=== PATIENT | female | born 1995 ===

== ENCOUNTER 2017-01-22 10:09 | Emergency (ER) | payer OTHER ==
[2017-01-22 10:15] VITALS: RESP 16; O2SAT 100
--- NOTE | 2017-01-22 11:48 | C.PDOC ---
History Of Present Illness Hx obtained via personal lines account manager 21-year-old female, (, LMP: 12/16) presents to the emergency department with complaints of abdominal pain. Patient states she has been experiencing suprapubic abdominal pain that started two days ago. Pain is intermittent in nature, non-radiating and associated with a blood-tinged cough. Patient denies dysuria, fevers, vaginal bleeding, or any other associated symptoms. No other complaints at this time. Time Seen by Provider: 01/22/17 10:29 Chief Complaint (Nursing): Abdominal Pain History Per: Patient History/Exam Limitations: no limitations Onset/Duration Of Symptoms: Days Current Symptoms Are (Timing): Still Present Severity: Moderate Past Medical History Reviewed: Historical Data, Nursing Documentation, Vital Signs Vital Signs: Last Vital Signs Temp 98.4 F 01/22/17 10:14 Pulse 98 H 01/22/17 10:14 Resp 16 01/22/17 10:14 BP 113/74 01/22/17 10:14 Pulse Ox 100 01/22/17 11:51 - Medical History PMH: Asthma Family History: States: No Known Family Hx - Social History Hx Alcohol Use: No Hx Substance Use: No - Immunization History Hx Influenza Vaccination: No Review Of Systems Except As Marked, All Systems Reviewed And Found Negative. Constitutional: Negative for: Fever, Chills Cardiovascular: Negative for: Chest Pain, Palpitations Respiratory: Positive for: Hemoptysis (blood-tinged) Gastrointestinal: Positive for: Abdominal Pain. Negative for: Nausea, Vomiting Genitourinary: Negative for: Dysuria, Frequency, Vaginal Bleeding Neurological: Negative for: Headache Physical Exam - Physical Exam Appears: Non-toxic, No Acute Distress Skin: Warm, Dry, No Rash Head: Atraumatic, Normacephalic Eye(s): bilateral: Normal Inspection, PERRL Nose: Normal Oral Mucosa: Moist Lips: Normal Appearing Neck: Normal ROM Cardiovascular: Rhythm Regular, No Murmur Respiratory: Normal Breath Sounds, No Accessory Muscle Use Gastrointestinal/Abdominal: Soft, Tenderness (mild, suprapubic), No Guarding, No Rebound Extremity: Normal ROM Neurological/Psych: Oriented x3, Normal Speech ED Course And Treatment - Laboratory Results Result Diagrams: 01/22/17 12:10 01/22/17 12:10 O2 Sat by Pulse Oximetry: 100 Pulse Ox Interpretation: Normal - CT Scan/US US Other Rad Studies (CT/US): Radiology Report Reviewed (Live single intrauterine with estimated gestational age 6 weeks 4 days. heart rate 124.5 bpm. ) Disposition Counseled Patient/Family Regarding: Studies Performed, Diagnosis, Need For Followup - Disposition Referrals: [facility] [Outside] [facility] [Outside] Disposition: HOME/ ROUTINE Disposition Time: 14:47 Condition: IMPROVED Additional Instructions: TOME TYLENOL SOLAMENTE SEGN LO DIRIGIDO PARA EL DOLOR. AHUJA ULTRASONIDO MUESTRA EL EMBARAZO. SEGUIMIENTO CON AHUJA OBGYN Instructions: Threatened Miscarriage (ED) Print Language: ROMANSH - Clinical Impression Clinical Impression: Threatened miscarriage - Scribe Statement The provider has reviewed the documentation as recorded by the Scribe (Claus Rhoades) All medical record entries made by the Scribe were at my direction and personally dictated by me. I have reviewed the chart and agree that the record accurately reflects my personal performance of the history, physical exam, medical decision making, and the department course for this patient. I have also personally directed, reviewed, and agree with the discharge instructions and disposition.
[2017-01-22 12:18] LABS: BASO % 0.3 % (0.0-2.0); EOS % 0.4 % (0.0-4.0); HEMOGLOBIN 11.6 g/dL (11.0-16.0); LYMPH # 1.5 K/uL (1.0-4.3); LYMPH % 24.9 % (20.0-40.0); MEAN CELL VOLUME 84.2 fL (81.0-99.0); MEAN CORPUSCULAR HGB CONC 33.2 g/dL (33.0-37.0); MEAN PLATELET VOLUME 9.2 fL (7.2-11.7); MONO # 0.4 K/uL (0.0-0.8); MONO % 6.3 % (0.0-10.0); NEUT # 4.2 K/uL (1.8-7.0); NEUT % 68.1 % (50.0-75.0); RBC 4.16 Mil/uL (3.80-5.20); RED CELL DISTRIBUTION WIDTH 14.8 % (11.5-14.5); WHITE BLOOD COUNT 6.1 K/uL (4.8-10.8)
[2017-01-22 12:33] LABS: ALB/GLOB RATIO 1.1 (1.0-2.1); AST/SGOT 14 U/L (14-36); BLOOD UREA NITROGEN 9 mg/dL (7-17); GFR AFRICAN-AMERICAN > 60; GFR NON-AFRICAN AMERICAN > 60
[2017-01-22 12:34] LABS: ALT/SGPT 17 U/L (9-52); CALCIUM 9.4 mg/dl (8.6-10.4)
[2017-01-22 12:36] LABS: SQUAMOUS EPITHIAL 4 /hpf (0-5); URINE BACTERIA RARE (<OCC); URINE BILIRUBIN NEGATIVE (NEGATIVE); URINE BLOOD NEGATIVE (NEGATIVE); URINE CLARITY Clear (Clear); URINE COLOR Yellow (YELLOW); URINE GLUCOSE (UA) NORMAL (Normal); URINE LEUKOCYTE ESTERASE TRACE Leu/uL (Negative); URINE NITRATE NEGATIVE (NEGATIVE); URINE PROTEIN NEGATIVE (NEGATIVE); URINE UROBILINOGEN NORMAL mg/dL (0.2-1.0)
--- NOTE | 2017-01-22 14:45 | US ---
Indication: Abdominal pain, vomiting Comparison: None available Technique: Transabdominal pelvic ultrasound Findings: The uterus measures approximately 10.3 x 5.2 x 6.3 cm. Anteverted. Cervix length measures approximately 3.9 cm. There is a single intrauterine fetus present. The gestational sac measures 2.0 cm and is compatible with a gestational age of 6 weeks 4 days. The crown-rump length measures 0.6 cm and is compatible with a gestational age of 6 weeks 3 days. There is heart motion which measured 124.5 BPM. The right ovary measures 3.6 x 1.6 x 2.3 cm. The left ovary measures 3.3 x 2.0 x 2.5 cm. Blood flow was demonstrated to both ovaries. Impression: Live single intrauterine with estimated gestational age 6 weeks 4 days. heart rate 124.5 bpm. Advise an anomaly screen at 16-18 weeks gestational age
[2017-01-22 15:24] VITALS: BP 99/63; PULSE 80; TEMP 98
== END 2017-01-22 16:02 | disposition home or self-care (01) ==
LOC: C.ER 10:09
DX: O20.0 Threatened abortion (principal); Z3A.01 Less than 8 weeks gestation of pregnancy